=== PATIENT | male | born 1975 | race Two or more races ===

== ENCOUNTER 2023-03-14 12:58 | Emergency (ER) | payer SELFPAY ==
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
[2023-03-14 13:25] VITALS: BP 138/77; PULSE 88; RESP 18; TEMP 37.1; O2SAT 99; BMI 27.2
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
[2023-03-14] MEDS: Diphth,Pertus(ACell),Tet Adult 0.5 ML SYRINGE IM (15:04)
[2023-03-14] MEDS: Lidocaine 4 % Patch ADH..PATCH 1 PATCH TRANSDERMA (15:36)
--- NOTE | 2023-03-14 15:39 | PC.NURSE ---
pt medicared per JUL 4% lidocaine patch applied to bse of neck
[2023-03-14 17:25] VITALS: BP 121/76; PULSE 73; RESP 20; TEMP 36.3; O2SAT 99
== END 2023-03-14 18:37 | disposition home or self-care (01) ==
PROVIDERS: Emergency Provider Emergency Medicine
DX: S06.0X0A Concussion without loss of consciousness, initial encounter (principal); S00.91XA Abrasion of unspecified part of head, initial encounter; M54.2 Cervicalgia; R51.9 Headache, unspecified; Y04.2XXA Assault by strike against or bumped into by another person, initial encounter; Y93.9 Activity, unspecified; Y92.9 Unspecified place or not applicable; Y99.9 Unspecified external cause status; Z23 Encounter for immunization
CPT/HCPCS: 70450; 70486; 72125; 90471; 90715; 99283; 99284